=== PATIENT | female | born 2000 | race Caucasian/White ===

== ENCOUNTER 2023-02-25 18:38 | Outpatient (REF) | payer MEDICAID, SELFPAY ==
[2023-02-26 06:18] LABS: CT PCR NOT DETECTED (Not Detect.); NG PCR NOT DETECTED (Not Detect.)
[2023-02-26 12:07] LABS: BV Int Neg Control Negative (Negative); BV Int Pos Control Positive (Positive)
== END 2023-02-25 18:39 | disposition home or self-care (01) ==
LOC: HO.HHCLNP 18:38
PROVIDERS: Visit Provider Registered Nurse
DX: B37.9 Candidiasis, unspecified (principal)
CPT/HCPCS: 0353U; 87480; 87510; 87660

== ENCOUNTER 2023-11-10 19:59 | Outpatient (REF) | payer MEDICAID, SELFPAY | END 2023-11-10 20:00 | disposition home or self-care (01) | LOC: HO.LNP 19:59 | PROVIDERS: Visit Provider Advanced Practice Midwife | DX: Z13.89 Encounter for screening for other disorder (principal) | CPT/HCPCS: 88142 ==

== ENCOUNTER 2024-01-11 12:23 | Outpatient (REF) | payer MEDICAID, SELFPAY ==
[2024-01-11 14:59] LABS: HCG Quantitative 337 mIU/mL
== END 2024-01-11 12:24 | disposition home or self-care (01) ==
LOC: HO.HHCL 12:23
PROVIDERS: Visit Provider Advanced Practice Midwife
DX: N93.9 Abnormal uterine and vaginal bleeding, unspecified (principal)
CPT/HCPCS: 36415; 84702

== ENCOUNTER 2024-08-03 12:21 | Outpatient (REF) | payer MEDICAID, SELFPAY ==
[2024-08-03 14:20] LABS: TSH reflex Free T4 1.47 uIU/mL (0.32-4.0)
--- OUTSIDE RECORDS SUMMARY | 2024-08-03 14:38 | XMS_ITS | Encounter Summary ---
Author Organization [facility] Address [address] [place] [address] Phone Care Team Providers Care Scale Expert Name Role Phone Unavailable Primary Care Provider Unavailabl e Reason for Visit * Reason Comments Med Refill Encounter Details Date Type Department Care Team (Late st Contact Info) Description 01/21/2018 Refill [facility] [address] [place] [address] Pattie Lundberg MD Social History Tobacco Use Types Packs/Day Years Used Date Smoking Tobacco: Never Smokeless Tobacco: Never Comments:Never smoker Alcohol Use Standard Drinks/Week Comments No 0 (1 standard drink = 0.6 oz pur e alcohol) Comments No Sex and Gender Information Value Date Recorded Sex Assigned at Not on file Legal Sex Female 5:16 PM EDT Gender Identity Not on file Sexual Orientation Not on file documented as of this encounter Plan of Treatment Not on file documented as of this encounter Visit Diagnoses Not on filedocumented in this encounter
--- OUTSIDE RECORDS SUMMARY | 2024-08-03 14:38 | XMS_ITS | Clinical Summary ---
Author Organization [facility] Address [address] [place] [address] Phone Care Team Providers Care Visitor Service Assistant Name Role Phone Unavailable Primary Care Provider Unavailabl e Allergies No known active allergies Medications LORATADINE 10 MG tabletIndication s:Chronic non-seasonal allergic rhinitis, unspecified trigger TAKE 1 TABLET BY ORAL ROUTE EVERY DAY 30 tablet 3 7 Active dicyclomine 10 MG capsule Take 10 mg by mouth 2 (two) times a day. 6 8 Active ALAWAY 0.025 % ophthalmic solution INSTILL 1 DROP BY OPHTHALMIC ROUTE 2 TIMES EVERY DAY INTO AFFECTED EYE(S) 1 8 Active melatonin tablet Take 3 mg by mouth nightly. 3 8 Active mometasone (ELOCON) 0.1 % cream ELOCON; apply by TOPICAL route every day a thin film to the affected skin areas; 0.1 %; 01/08/2017; Active 7 Active TRI-PREVIFEM 0.18/0.215/0.25 MG-35 MCG per tablet Take 1 tablet by mouth once daily. 11 8 Active Active Problems Problem Noted Date Diagnosed Date Flexural eczema 01/16/2009 Overview (12/01/2017): triamcinalone 0.1 % cream prn Immunizations Name Administration Dates Next Due DTaP 5 01/19/2004, 1,06/23/2000,03/11,01/03/2000 HPV Vaccine 9 Valent 06/25/2016,11/06/2015 HPV, Quadrivalent 02/27/2012 Hep A, ped/adol 10/10/2014,12/06/2010 Hep B, ped/adol 05/13/2000,03/11/2000,01/03/2000 Hib (PRP-T) 03/11/2001, 0,03/11/2000,01/02 IPV 01/19/2004, 0,03/11/2000,01/02 Influenza Split 02/27/2012 Influenza, injectable, MDCK, preservative free, quadrivalent 06/25/2016 Influenza, injectable, quadr ivalent, preservative free 05/19/2013 Influenza, injectable, trivalent 06/09/2008 MMR 01/19/2004,11/04/2000 Meningococcal Conj (Menactra) MCV4P 11/06/2016,0 02/27/2012 Pneumococcal Conjugate 06/30/2001 Tdap 02/27/2012 Varicella 12/06/2009,11/04/2000 Family History Relation Name Status Comments Brother Alive Brother: Alive and well Father Alive Father: Alive a nd well Mother Alive Mother: Alive a nd well Other 1 Alive Family h/o: Ali ve and well Other 2 No family histo ry of Seizure disorder, No family history of *Thrombophilia, No family history of *Heart Disease, Family history of Diabetes mellitus, No family history of Obesity, No family history of Cancer, No family history of ADD/ADHD, No family history of Strabismus, No family history of *Sudden /NE under 55, No family history of *CVA/Stroke, No family history of Migraines, No family history of Developmental dislocation of hip, No family history of Deafness, Family history of Asthma, No family history of Hyperlipidemia Social History Tobacco Use Types Packs/Day Years [...] on file Sexual Orientation Not on file Last Filed Vital Signs Vital Sign Reading Time Taken Comments Blood Pressure 118/71 12/01/2017 2:10 PM EDT Pulse 77 12/01/2017 2:10 PM EDT Temperature 36.3 ??C (97.3 ??F) 12/10/2016 12:00 AM E DT Respiratory Rate - - Oxygen Saturation - - Inhaled Oxygen Concentration - - Weight 46.5 kg (102 lb 9.6 oz) 12/01/2017 2:10 P M EDT Height 152.4 cm (5') 12/01/2017 2:10 PM EDT Body Mass Index 20.04 12/01/2017 2:10 PM EDT Plan of Treatment Health Maintenance Due Date Last Done Comments Influenza Vaccines (#1) 2024 04/17/20 20, 03/26/2018, 06/25/2016, Additional history exists COVID-19 Vaccine ( season) 2024 DTaP,Tdap,and Td Vaccines (8 - Td or Tdap) 04/20/2029 04/20/2019, 02/27/2012, 01/19/2004, Additional history exists Hepatitis B Vaccines Completed 05/13/2000, 03/11/2000, 01/03/2000 HIB Vaccines Completed 03/11/2001, 02/2000, 03/11/2000, Additional history exists Pneumococcal Vaccine Aged Out 06/30/2001 No long er eligible based on patient's age to complete this topic IPV Vaccines Completed 01/19/2004, 02/2000, 03/11/2000, Additional history exists MMR Vaccines Completed 01/19/2004, 11/04/2000 Varicella Vaccines Completed 12/06/2009, 11/04/2000 Hepatitis A Vaccines Completed 10/10/2014, 12/07/19 11 HPV Vaccines Completed 06/25/2016, 09/2015, 02/27/2012 Meningococcal Vaccine Completed 11/06/2016, 012 Men B Vaccine Aged Out No longer elig ible based on patient's age to complete this topic Procedures * Due to [place] QWiPS law, this organization might not be sharing sensitive test results. Procedure Name Priority Date/Time Associated Diagnosis Comments CHLAMYDIA AND GONORRHEA, AMPLIFIED Routine 12/01/2017 2:30 PM EDT Encounter for screening examination for sexually transmitted disease from Last 3 Months or Most Recently Relevant to Health Maintenance Results * Due to [place] QWiPS law, this organization might not be sharing sensitive test results. * Chlamydia and Gonorrhoea, Amplified (12/01/2017 2:30 PM EDT) Chlamydia Trachomatis, DNA Probe NEGATIVE (NEG) [facility] Comment: No Chlamydia Trachomatis RNA detected in this patient's sample ? (REFERENCE RANGE/NORMAL VALUE: NOT DETECTED) ? Note: This test uses service member- mediated amplification method to detect rRNA from C. Trachomatis URINE GC AMP PROBE NEGATIVE (NEG) [facility] Comment: No Neisseria Gonorrhoeae RNA detected in this patient's sample ? (REFERENCE RANGE/NORMAL VALUE: NOT DETECTED) ? NOTE: This test uses service member-mediated amplification method to detect rRNA from N.Gonorrhoeae. A negative result does not preclude infection. In the case of a negative urine result, testing of an endocervical(female) or urethral (male) specimen is recommended if there is high clinical suspicion of infection. Due to very high sensitivity of Nucleic Acid Amplification Test, false positive results may occur. Therefore, specimen handling is extremely important. In patients in whom the disease is unlikely, additional sample for testing should be considered after an initial positive result. The performance characteristics of this test have not been evaluated in children. The Aptima Combo2 assay is not intended for the evaluation of suspected sexual abuse or for other medico-legal indications. The ordering provider should assess if the patient had consensual sex without risk of sexual abuse. Consult the [facility] if needed. Contact phone number . Therapeutic failure or success cannot be determined with the Aptima Combo2 assay since nucleic acid may persist following appropriate antimicrobial therapy. The Centers for Disease Control and Prevention (CDC) recommends confirmatory retesting using culture or a different nucleic acid amplification test when positive results occur, if indicated. Testing performed or reported by [facility], a Service of [facility], Paulie FunezyoCRISTIANO shaw [id number] CLIA ??[id number] German Montgomery MD, PhD, Director Of Reservations Urine (Urine) 12/01/2017 2:3 0 PM EDT 12/02/2017 12:10 AM EDT us Pattie Lundberg MD LAB MICROBIOLOGY - GENERAL ORDER JOSE Final Result [facility] from Last 3 Months or Most Recently Relevant to Health Maintenance Insurance NON PCC
--- OUTSIDE RECORDS SUMMARY | 2024-08-03 14:38 | XMS_ITS | Encounter Summary ---
Author Organization [facility] Address [address] [place] [address] Phone Care Team Providers Care Physical Therapist Clinic Director Name Role Phone Unavailable Primary Care Provider Unavailabl e Encounter Details Date Type Department Care Team (Late st Contact Info) Description 02/19/2017 Conversion Encounter [facility] - [address] [address] Social History Tobacco Use Types Packs/Day Years Used Date Smoking Tobacco: Never Comments:Never smoker Comments Unknown Sex and Gender Information Value Date Recorded Sex Assigned at Not on file Legal Sex Female 5:16 PM EDT Gender Identity Not on file Sexual Orientation Not on file documented as of this encounter Plan of Treatment Not on file documented as of this encounter Visit Diagnoses Not on filedocumented in this encounter
--- OUTSIDE RECORDS SUMMARY | 2024-08-03 14:38 | XMS_ITS | Encounter Summary ---
Author Organization [facility] Address [address] [place] [address] Phone Care Team Providers Care Respiratory Services Manager Name Role Phone Unavailable Primary Care Provider Unavailabl e Encounter Details Date Type Department Care Team (Late st Contact Info) Description 09/30/2016 Documentation [facility] [place] [address] [place], [place] [id number] Family Medicine, Physician [address] [place], [place] [address] Social History Tobacco Use Types Packs/Day Years Used Date Smoking Tobacco: Never Assessed Comments Unknown Sex and Gender Information Value Date Recorded Sex Assigned at Not on file Legal Sex Female 5:16 PM EDT Gender Identity Not on file Sexual Orientation Not on file documented as of this encounter Plan of Treatment Not on file documented as of this encounter Visit Diagnoses Not on filedocumented in this encounter
--- OUTSIDE RECORDS SUMMARY | 2024-08-03 14:38 | XMS_ITS | Clinical Summary ---
Author Organization [facility] Address [address] [place] [address] Care Team Providers Care Sales Order Coordinator Name Role Phone Unavailable Primary Care Provider Unavailabl e Surgical History Surgery Date Site/Laterality Comments WISDOM TOOTH EXTRACTION PROCEDURE: HISTORICAL WISDOM TEETH EXTRACTION Medical History Medical History Date Comments Patient denies medical problems DX:Patient denies medical problems Anxiety and depression DX:Anxiet y and depression; COMMENT: from transfer records Social History Tobacco Use Types Packs/Day Years Used Date Smoking Tobacco: Never Smokeless Tobacco: Never Alcohol Use Standard Drinks/Week Comments No 0 (1 standard drink = 0.6 oz pur e alcohol) Sex and Gender Information Value Date Recorded Sex Assigned at Not on file Gender Identity Not on file Sexual Orientation Not on file Obstetrics History Last Filed Vital Signs Vital Sign Reading Time Taken Comments Blood Pressure 94/64 10/13/2023 1:36 PM EDT Pulse 77 10/13/2023 1:36 PM EDT Temperature - - Respiratory Rate - - Oxygen Saturation - - Inhaled Oxygen Concentration - - Weight 66.5 kg (146 lb 8 oz) 10/13/2023 1:36 PM EDT Height 149.9 cm (4' 11 ) 09/04/2023 2:27 PM EST Body Mass Index 29.59 09/04/2023 2:27 PM EST Plan of Treatment Health Maintenance Due Date Last Done Comments Gonorrhea/Chlamydia Screening 1999 HPV Vaccines (1 - 3-dose series) 10/15/2014 DTaP,Tdap,and Td Vaccines (1 - Tdap) 10/15/2018 Hepatitis B Vaccines (1 of 3 - 19+ 3-dose series) 10/15/2018 Cervical Cancer Screening: P ap Smear 10/15/2020 Cholesterol Screening (Lipid Panel) 06/07/2022 Depression Screening 06/07/2022 HIV Screening 06/07/2022 Hepatitis C Screening 06/07/2022 Social Influencers of Health Screening 06/07/2022 COVID-19 Vaccine ( - 2023-2 5 season) 2024 Influenza Vaccine (#1) 2024 HIB Vaccines Aged Out No longer eligi ble based on patient's age to complete this topic Hepatitis A Vaccines Aged Out No long er eligible based on patient's age to complete this topic IPV Vaccines Aged Out No longer eligi ble based on patient's age to complete this topic MMR Vaccines Aged Out No longer eligi ble based on patient's age to complete this topic Meningococcal ACWY Vaccine Aged Out N o longer eligible based on patient's age to complete this topic Pneumococcal Vaccine: Pediat rics (0 to 5 Years) and At-Risk Patients (6 to 64 Years) Aged Out No longer eligible b ased on patient's age to complete this topic RSV Immunization Patients Un manjit 20 months Aged Out No longer eligible b ased on patient's age to complete this topic Varicella Vaccines Aged Out No longer eligible based on patient's age to complete this topic
--- OUTSIDE RECORDS SUMMARY | 2024-08-03 14:38 | XMS_ITS | Encounter Summary ---
Author Organization [facility] Address [address] [place] [address] Phone Care Team Providers Care Control Director Name Role Phone Unavailable Primary Care Provider Unavailabl e Encounter Details Date Type Department Care Team (Late st Contact Info) Description 09/03/2016 Documentation [facility] [place] Medicine [address] [place], [place] [phone] Family Medicine, Physician [address], [place] [phone] Social History Tobacco Use Types Packs/Day Years [...]
--- OUTSIDE RECORDS SUMMARY | 2024-08-03 14:38 | XMS_ITS | Encounter Summary ---
Author Organization [facility] Address [address] [place] [address] Phone Care Team Providers Care Telecommunications Project Manager Name Role Phone Unavailable Primary Care Provider Unavailabl e Encounter Details Date Type Department Care Team (Late st Contact Info) Description 08/27/2016 Documentation [facility] [place] [address] [place], [place] [phone] Family Medicine, Physician [address] [place] [place], [place] [address] Social History Tobacco Use Types Packs/Day Years [...]
--- OUTSIDE RECORDS SUMMARY | 2024-08-03 14:38 | XMS_ITS | Encounter Summary ---
Author Organization [facility] Address [address] [place] [address] Phone Care Team Providers Care Boiler Out Name Role Phone Unavailable Primary Care Provider Unavailabl e Encounter Details Date Type Department Care Team (Late st Contact Info) Description 07/25/2015 Documentation [facility] [place] [address] [place], [place] [phone] Family Medicine, Physician [address], [place] [address] Social History Tobacco Use Types Packs/Day Years [...]
--- OUTSIDE RECORDS SUMMARY | 2024-08-03 14:38 | XMS_ITS | Encounter Summary ---
Author Organization [facility] Address [address] [place] [address] Phone Care Team Providers Care Tube Backer Name Role Phone Unavailable Primary Care Provider Unavailabl e Encounter Details Date Type Department Care Team (Late st Contact Info) Description 08/24/2013 Documentation [facility] [address] [place], [place] [phone] Family Medicine, Physician [address] [place], [place] [address] Social History Tobacco Use Types Packs/Day Years [...]
--- OUTSIDE RECORDS SUMMARY | 2024-08-03 14:38 | XMS_ITS | Encounter Summary ---
Author Organization [facility] Address [address] [place] [address] Phone Care Team Providers Care Property Preservation Specialist Name Role Phone Unavailable Primary Care Provider Unavailabl e Encounter Details Date Type Department Care Team (Late st Contact Info) Description 08/06/2011 Documentation [facility] [place] [address] [place], [place] [phone] Family Medicine, Physician [address], [place] [address] Social History Tobacco Use Types Packs/Day Years [...]
[2024-08-04 07:44] LABS: Prolactin 4.7 ng/mL
[2024-08-04 11:53] LABS: Bacterial Vaginosis PCR NEGATIVE (Negative); Candida Group PCR NOT DETECTED (Not Detect); Candida glab krusei PCR NOT DETECTED (Not Detect); Trichomonas vaginalis PCR NOT DETECTED (Not Detect)
[2024-08-04 17:19] LABS: CT PCR NOT DETECTED (Not Detect.); NG PCR NOT DETECTED (Not Detect.)
== END 2024-08-03 12:22 | disposition home or self-care (01) ==
LOC: HO.HHCL 12:21
PROVIDERS: Visit Provider Advanced Practice Midwife
DX: Z11.3 Encounter for screening for infections with a predominantly sexual mode of transmission (principal); N91.2 Amenorrhea, unspecified
CPT/HCPCS: 36415; 81515; 84146; 84443; 87491; 87591

== ENCOUNTER 2025-03-21 11:36 | Outpatient (REF) | payer MEDICAID, SELFPAY ==
[2025-03-21 14:09] LABS: MANUAL DIFF FLAG NO
[2025-03-21 14:33] LABS: Hematocrit 39.1 % (37.0-47.0); Hemoglobin 13.4 g/dl (12.0-16.0); Imm Gran Abs Auto 0.02 X10*3/uL (0.00-0.03); Imm Gran Pct Auto 0.3 % (0.0-0.4); Lymphocytes Absolute Auto 2.8 X10*3/uL (1.2-4.9); Mean Corpuscular HGB Conc 34.3 g/dl (31.0-35.0); Mean Corpuscular Hemoglobin 30.0 pg (27.0-33.0); Mean Corpuscular Volume 87.5 fL (80.0-98.0); NRBC Abs Auto 0.000 X10*3/uL (0.0-0.012); NRBC Pct Auto 0.0 /100WBC (0.0-0.2); Platelet Count 346 X10*3/uL (160-400); Red Blood Count 4.47 X10*6/uL (4.20-5.50); White Blood Count 6.7 X10*3/uL (4.8-10.8)
[2025-03-21 14:49] LABS: Alanine Aminotransferase 66 U/L (0-31); Albumin Level 4.4 g/dL (3.5-5.0); Alkaline Phosphatase 72 U/L (39-117); Anion Gap 10 (12-20); Aspartate Amino Transferase 51 U/L (5-31); Blood Urea Nitrogen 8 mg/dL (9-16); Calcium 8.9 mg/dL (8.4-10.2); Carbon Dioxide 26 mmol/L (22-29); Chloride 110 mmol/L (96-108); Cholesterol 141 mg/dL (<200); Estimated Glomerular Filt Rate > 60; HDL Cholesterol 37 mg/dL (>40); Potassium 3.6 mmol/L (3.3-5.1); Sodium 142 mmol/L (135-145); Total Protein 7.5 g/dL (6.5-8.0); Triglycerides 122 mg/dL (<150)
--- OUTSIDE RECORDS SUMMARY | 2025-03-21 15:51 | XMS_ITS | Encounter Summary ---
Author Organization [employer] [facility] Address [address] [place] [address] [address] [place] [address] Care Team Providers Care Adobe Cq Developer Name Role Phone Elodia Sosa MD Primary Care Provider [phone] Encounter Details Date Type Department Care Team (Latest Contact Info) Description 03/09/2019 Abstract [facility]VERSION[facility] Dental, Provider, DDS Social History Tobacco Use Types Packs/Day Years Used Date Smoking Tobacco: Never Assessed Comments Unknown Sex and Gender Information Value Date Recorded Sex Assigned at Female 05/05/2022 10:24 AM EDT Legal Sex Female 10:24 AM EDT Gender Identity Female 05/05/2022 10:24 AM EDT Sexual Orientation Straight 05/05/2022 10 :24 AM EDT documented as of this encounter Plan of Treatment Not on file documented as of this encounter Visit Diagnoses Not on filedocumented in this encounter Care Teams Adobe Cq Developer Relationship Specialty Start Date End Date Elodia Sosa MD [address] [place] [address] PCP - General Internal Medicine 02/10/25 Awilda Paul Laborer [employer] [place] 09/17/23 documented as of this encounter
--- OUTSIDE RECORDS SUMMARY | 2025-03-21 15:51 | XMS_ITS | Clinical Summary ---
Author Organization [employer] Address [address] [facility] [address] [place] [address] Care Team Providers Care Certified Procedural Coder Name Role Phone Elodia Sosa MD Primary Care Provider [phone] Allergies Active Allergy Reactions Criticality Noted Date Comments Latex 03/21/2022 Other reaction(s): Acne Medications diphenhydrAMIN E (BENADryl) 25 MG tabletIndicati ons:Urticaria 1 to 2 tablets at bedtime. 30 tablet 2 11/08/19 25 Active famotidine (Pepcid) 20 MG tabletIndicati ons:Other chest pain Take 1 tablet (20 mg) by mouth 2 times daily. 60 tablet 11 11/08/19 25 026 Active Acetaminophen Extra Strength 500 MG tablet TAKE 1 TABLET (500 MG) BY MOUTH EVERY 6 (SIX) HOURS IF NEEDED FOR MILD PAIN. 90 tablet 01/24/20 25 Active fexofenadine (Nancy) 180 MG tabletIndicati ons:Urticaria TAKE 1 TABLET BY MOUTH IF NEEDED EACH DAY FOR ALLERGIES 90 tablet 01/31/20 25 Active acetaminophen (Tylenol) 500 MG tablet Take 2 tablets (1,000 mg) by mouth every 6 (six) hours if needed for moderate pain or fever for up to 25 doses. 40 tablet 07/13/19 25 025 Discontinued Drospirenone (Slynd) 4 MG tablet Take 1 tablet by mouth Once per day. Start after taking Provera and once period starts. Call office if no period after taking Provera or no period on pill 28 tablet 11 08/03/19 25 025 Discontinued(Th erapy completed) lidocaine-pril ocaine (Emla) 2.5-2.5 % creamIndicatio ns:Other chest pain To use 2 times a day as needed 30 g 1 11/08/19 25 025 Discontinued(Th erapy completed) methocarbamol (Robaxin) 500 MG tablet Take 1 tablet (500 mg) by mouth every 6 (six) hours for 10 days. 40 tablet 01/03/20 25 025 Discontinued(Th erapy completed) Active Problems Problem Noted Date Diagnosed Date Acute gastric ulcer without hemorrhage or perfor ation 03/10/2025 Anemia affecting in third trimester Anxiety 11/07/2024 Constipation 11/07/2024 Depression 11/07/2024 Dysuria in 11/07/2024 Frequent headaches 11/07/2024 Hematuria 11/07/2024 Nausea and vomiting 11/07/2024 11/07/2024 Abdominal pain 10/21/2022 Family planning 09/18/2022 Assessment & Plan (09/18/2022 9:43 AM EDT): Does not desire . Susan given She would like to try birthcontrol patch. She will start after her next period. Check pregnacy test if no menses in 2 weeks. Condoms given. Lower abdominal pain 09/18/2022 Assessment & Plan (09/18/2022 9:42 AM EDT): No acute abdomen. Pregnacy test negative. Possibly due to constipation. Trial of Senna and Glycerin supository given. ER precautions discussed. Chronic superficial gastritis 03/26/2018 Flexural eczema 01/16/2009 Overview (09/18/2022): triamcinalone 0.1 % cream prn Encounters Date Type Department Care Team Description 03/10/2025 2:00 PM EDT Office Visit [facility] [address] [place] [address] Elodia Sosa MD Acute gastric ulcer without hemorrhage or perforation (Primary Dx); Flexural eczema; Chronic superficial gastritis without bleeding; Frequent headaches; Dietary counseling; Exercise counseling; Overweight (BMI 25.0-29.9) 03/10/2025 Travel 03/09/2025 Telephone [facility] [address] [place] [address] Elodia Sosa MD chart prep 03/03/2025 Travel 03/02/2025 Patient Outreach [address] [address] Elodia Sosa MD Pre-visit Planning (Pre visit planning LVM ) 01/29/[address] [facility] [address] [place] [address] Elodia Sosa MD Urticaria 01/22/2025 Refill [facility] [address] [place], [place] [phone] Jen Busby MD 01/02/2025 11:30 AM EDT Office Visit [facility] [address] [place] [address] Jen Busby MD Chronic bilateral thoracic back pain (Primary Dx) 01/02/[address] [address] Jen Busby MD Change PCP 01/02/2025 Travel 12/29/[address] [address] Jen Busby MD Nurse Triage from Last 3 Months Immunizations Immunization Administration Dates Next Due DTaP, 5 pertussis antigens 01/19/2004,,06/23/2000,03/11,01/03/2000 HPV 9-Valent 06/25/2016,11/06/2015 HPV, Quadrivalent 02/27/2012 Hep A, ped/adol, 2 dose 10/10/2014,12/06/2010 Hep B, Adolescent or Pediatric 05/13/2000,1999,01/03/2000 Hib (PRP-T) 03/11/2001, 0,03/11/2000,01/02 IPV 01/19/2004, 0,03/11/2000,01/02 Influenza Injectable Quadriv alant Preservative Free IIV4 MDCK 06/25/2016 Influenza injectable quadriv alent preservative free 03/27/2021,04/17/2020,03/26/2018,05/19 Influenza, IIV3, injectable 06/09/2008 Influenza, Split (incl. rajani fied surface antigen) 02/27/2012 MMR 01/19/2004,11/04/2000 Meningococcal MCV4P ACYW-135 11/06/2016,02/27/20 12 Pfizer Covid-19 Vaccine 12+ 05/02/2021, Pneumococcal Conjugate PCV 7 06/30/2001 Tdap 06/24/2023,04/20/2019,02/27/2012 Varicella 12/06/2009,11/04/2000 Family History Medical History Relation Name Comments Arthritis Mother Keerthi Arthritis Son Zay Dillon Heart disease Son Zay Dillon Relation Name Status Comments Mother Keerthi Son Zay Dillon Social History Tobacco Use Types Packs/Day Years Used Date Smoking Tobacco: Never Passive Smoke Exposure: Never Smokeless Tobacco: Never Tobacco Cessation:Counseling Given: Not Answered Alcohol Use Standard Drinks/Week Comments Never 0 (1 standard drink = 0.6 oz pur e alcohol) Depression Answer Date Recorded Patient Health Questionnaire-9 Score 0 09/20/2024 Patient Health Questionnaire-9 Score 0 09/20/2024 Last PHQ-9: Questionnaire Data Not on file 0 09/20/2024 Housing Stability Answer Date Recorded What is your housing situation today? I have ian vela 09/13/[address] you li ve. Do you have problems with any of the following? None of the above 09/13/2024 Food Insecurity Answer Date Recorded Within the past 12 months, y ou worried that your food would run out before you got money to buy more: Never True 09/13/2024 Within the past 12 months,th e food you bought just didn't last and you didn't have enough money to get more: Never True 05/2025 Transportation Answer Date Recorded In the past 12 months, has l ack of transportation kept you from medical appts, meetings, work or from getting things needed for daily living? No 09/13/2024 Utilities Answer Date Recorded In the past 12 months, has t he electric, gas, oil or water company threatened to shut off services in your home? No 09/13/2024 Depression Answer Date Recorded Patient Health Questionnaire-2 Score 0 09/20/2024 Internet Access Answer Date Recorded Internet Access Q1 Yes 09/13/2024 Internet Access Q2 Not on file 09/13/2024 Comments No Sex and Gender Information Value Date Recorded Sex Assigned at Female 05/05/2022 10:24 AM EDT Legal Sex Female 10:24 AM EDT Gender Identity Female 05/05/2022 10:24 AM EDT Sexual Orientation Straight 05/05/2022 10 :24 AM EDT Last Filed Vital Signs Vital Sign Reading Time Taken Comments Blood Pressure 130/76 03/10/2025 2:12 PM EDT Pulse 79 03/10/2025 2:12 PM EDT Temperature 36.3 C (97.3 F) 03/10/2025 2:12 PM EDT Respiratory Rate 20 03/10/2025 2:12 PM EDT Oxygen Saturation 98% 03/10/2025 2:12 PM EDT Inhaled Oxygen Concentration - - Weight 65.8 kg (145 lb) 03/10/2025 2:12 PM EDT Height 152.4 cm (5') 03/10/2025 2:12 PM EDT Body Mass Index 28.32 03/10/2025 2:12 PM EDT Plan of Treatment Health Maintenance Due Date Last Done Comments COVID-19 Vaccine ( season) 2025 09/29/2021, 05/02/2021, 04/11/2021 Influenza Vaccine (#1) 2025 , 03/27/2021, 04/17/2020, Additional history exists Disability Screening 07/13/2025 07/13/2024 Family Planning (PISQ) 08/03/2025 08/03/2024 SDOH Screening 09/13/2025 09/13/2024 Alcohol/Substance Use Screening 09/20/2025 09/20/2024 Depression Screening 09/20/2025 09/20/2024, 09/21/19 25 Tobacco Screening 03/10/2026 03/10/2025 Pap Smear 11/09/2026 11/10/2023, 11/06/2020 DTaP/Tdap/Td Vaccines (9 - Td or Tdap) 06/24/2033 06/24/2023, 04/20/2019, 02/27/2012, Additional history exists Zoster Vaccines (1 of 2) 10/15/2049 RSV Patients and Patients Aged 60 years or older (1 - 1-dose 75+ series) 10/15/2074 Hepatitis B Vaccines Completed 05/13/2000, 03/11/2000, 01/03/2000 HIB Vaccines Completed 03/11/2001, 02/2000, 03/11/2000, Additional history exists Pneumococcal Vaccine: Pediatrics (0 to 5 Years) and At-Risk Patients (6 to 49) Years Aged Out 06/30/2001 No longer eligible based on patient's age to complete this topic IPV Vaccines Completed 01/19/2004, 02/2000, 03/11/2000, Additional history exists Hepatitis A Vaccines Completed 10/10/2014, 12/07/19 11 HPV Vaccines Completed 06/25/2016, 09/2015, 02/27/2012 Meningococcal Vaccine Completed 11/06/2016, 012 HIV Screening Completed 05/20/2022, 01/03, 11/27/2021, Additional history exists Hepatitis C Screening Completed 05/20/2022 , 01/20/2022, 11/27/2021, Additional history exists Meningococcal B Vaccine Aged Out No l onger eligible based on patient's age to complete this topic RSV under 20 months Aged Out No longe r eligible based on patient's age to complete this topic Rotavirus Vaccines Aged Out No longer eligible based on patient's age to complete this topic Procedures Procedure Name Priority Date/Time Associated Diagnosis Comments TSH W/REFLEX TO FT4 Routine 03/21/2025 1 1:43 AM EDT Frequent headaches LIPID PANEL, STANDARD Routine 03/21/2025 11:43 AM EDT Frequent headaches COMPREHENSIVE METABOLIC PANEL Routine 03/21/2025 11:43 AM EDT Frequent headaches CBC WITH AUTO DIFFERENTIAL Routine 03/21/2025 11:43 AM EDT Frequent headaches PAP SMEAR Routine 11/10/2023 2:02 PM EDT Cervical cancer screening ZZZ HISTORICAL HEPATITIS C AB W/REFL TO HCV RNA, QN, PCR Routine 05/20/2022 10:52 AM EST HIV 1/2 ANTIGEN/ANTIBODY, FOURTH GENERATION W/RFL Routine 05/20/2022 10:52 AM EST from Last 3 Months or Most Recently Relevant to Health Maintenance Results * TSH with Reflex to Free T4 (03/21/2025 11:43 AM EDT) Pathologist [facility] TSH reflex Free T4 0.91 0.32 - 4.0 uIU/mL [facility] Blood Venous blood specimen / Unknown 03/21/2025 11:43 AM EDT 03/21/2025 2:06 PM EDT us Elodia Sosa MD LAB BLOOD ORDERABLES Final Result [facility] [address] [place] [phone] * (ABNORMAL) CBC auto differential (03/21/2025 11:43 AM EDT) Pathologist [facility] White Blood Count 6.7 4.8 - 10.8 X10*3/uL [facility] Red Blood Count 4.47 4.20 - 5.50 X10*6/uL [facility] Hemoglobin 13.4 12.0 - 16.0 g/dl [facility] Hematocrit 39.1 37.0 - 47.0 % [facility] Mean Corpuscular Volume 87.5 80.0 - 98.0 fL [facility] Mean Corpuscular Hemoglobin 30.0 27.0 - 33.0 pg [facility] Mean Corpuscular HGB Conc 34.3 31.0 - 35.0 g/dl [facility] Red Cell Distribution Width 12.8 11.0 - 16.0 % [facility] Platelet Count 346 160 - 400 X10*3/uL [facility] Mean Platelet Volume 10.0 9.4 - 12.3 fL [facility] Neutrophils Percent Auto 50.2 45 - 73 % [facility] Imm Gran Pct Auto 0.3 0.0 - 0.4 % [facility] Lymphocytes Percent Auto 41.4(H) 20 - 40 % [facility] Monocytes Percent Auto 5.6 2 - 11 % [facility] Eosinophils Percent Auto 1.7 0 - 4 % [facility] Basophils Percent Auto 0.8 0 - 2 % [facility] NRBC Pct Auto 0.0 0.0 - 0.2 /100WBC [facility] Neutrophils Absolute Auto 3.4 2.0 - 8.3 x10*3/uL [facility] Imm Gran Abs Auto 0.02 0.00 - 0.03 X10*3/uL [facility] Lymphocytes Absolute Auto 2.8 1.2 - 4.9 X10*3/uL [facility] Monocytes Absolute Auto 0.4 0.1 - 1.2 X10*3/uL [facility] Eosinophils Absolute Auto 0.1 0.0 - 0.4 X10*3/uL [facility] Basophils Absolute Auto 0.1 0.0 - 0.2 X10*3/uL [facility] NRBC Abs Auto 0.000 0.0 - 0.012 X10*3/uL [facility] Blood Venous blood specimen / Unknown 03/21/2025 11:43 AM EDT 03/21/2025 2:06 PM EDT us Elodia Sosa MD LAB BLOOD ORDERABLES Final Result [facility] [address] [place] [phone] * (ABNORMAL) Lipid Panel, Standard (03/21/2025 11:43 AM EDT) Triglycerides 122 <150 mg/dL [facility] Comment:Desirable Triglyceri de: less than 150 mg/dLBorderline High Triglyceride 150-199 mg/dLHigh Triglyceride: 200-499 mg/dLVery High Triglyceride: greater than or equal to 5OO mg/dL Cholesterol 141 <200 mg/dL [facility] Comment:Desirable Cholestero l: less than 200 mg/dLBorderline High Cholesterol: 200-239 mg/dLHigh Cholesterol: greater than 239 mg/dL LDL Cholesterol Calculated 80 <100 mg/dL [facility] Comment:Desirable LDL: less than 100 mg/dLNear Optimal/Above Optimal LDL: 110- 129 mg/dLBorderline High LDL: 130-159 mg/dLHigh LDL: 160-189 mg/dLVery High LDL: greater than or equal to 190 mg/dL HDL Cholesterol 37(L) >40 mg/dL [facility] Comment:Desirable HDL: great er than 40 mg/dL Note: This HDL assay may give artificially low results in patients with liver disease. Blood Venous blood specimen / Unknown 03/21/2025 11:43 AM EDT 03/21/2025 2:06 PM EDT us Elodia Sosa MD LAB BLOOD ORDERABLES Final Result [facility] [address] [place] [phone] * (ABNORMAL) Comprehensive Metabolic Panel (03/21/2025 11:43 AM EDT) Sodium 142 135 - 145 mmol/L [facility] Potassium 3.6 3.3 - 5.1 mmol/L [facility] Chloride 110(H) 96 - 108 mmol/L [facility] Carbon Dioxide 26 22 - 29 mmol/L [facility] Anion Gap 10(L) 12 - 20 [facility] Urea Nitrogen (BUN) 8(L) 9 - 16 mg/dL [facility] Creatinine, Serum 0.59 0.5 - 1.4 mg/dL [facility] Estimated Glomerular Filt Rate >60 [facility] Comment:Chronic Kidney Disea se: Estimated GFR < 60 mL/min/[id number] Kidney Disease: Estimated GFR < 15 mL/min/1.73m2 Glucose 87 60 - 115 mg/dL [facility] Calcium 8.9 8.4 - 10.2 mg/dL [facility] Bilirubin, Total 0.7 0.0 - 1.0 mg/dL [facility] Aspartate Amino Transferase 51(H) 5 - 31 U/L [facility] Alanine Aminotransferase 66(H) 0 - 31 U/L [facility] Total Protein 7.5 6.5 - 8.0 g/dL [facility] Albumin Level 4.4 3.5 - 5.0 g/dL [facility] Alkaline Phosphatase 72 39 - 117 U/L [facility] Blood Venous blood specimen / Unknown 03/21/2025 11:43 AM EDT 03/21/2025 2:06 PM EDT us Elodia Sosa MD LAB BLOOD ORDERABLES Final Result [facility] [address] [place] [phone] * Pap Smear (11/10/2023 2:02 PM EDT) Swab Cervix uteri structure / Unknown 11/10/2023 2:02 PM EDT 11/11/2023 8:20 AM EDT Narrative [facility] - 11/28/2023 5:45 PM EDT ----- ------- Name: Santana PashaCelia Age/Sex: 23/F : 2000 Unit#: [id number] Attend Dr: ZAIRE CASTRO CNM Re11/10/23 Status: DEP REF Location: [facility]NP Disch: ----- ------- SPEC : [id number] RECD: 11/11/23 STATUS: BRENDA TILLMAN NUM: [id number] FERNIE: 11/10/23-[address] [facility] [address]: ZAIRE CASTRO CNM ENTERED: 11/11/23-1055 SP TYPE: Pap Smr OTHR DR: ORDERED: Pap Smear Interpretation Satisfactory for evaluation. Negative for intraepithelial lesion or malignancy. Mild inflammation. Clinical Information LMP: 11/10/2023 Previous PAP test: 2020, WNL Material Received ThinPrep-Cervical ----- ------- Signed (signature on file) Geovanna Aguilar 11/28/23 8025 ----- ------- END OF REPORT Zaire Castro CNM LAB CYTOLOGY ORDERABLES F inal Result [facility] [address] [place] [phone] * HEPATITIS C AB W/REFL TO HCV RNA, QN, PCR (05/20/2022 10:52 AM EST) HEPATITIS C ANTIBODY NON-REACTI VE NON-REACT CHIDI [facility] INDEX 0.11 <1.00 [facility] Comment: HCV antibody was non-reactive. There is no laboratory evidence of HCV infection. In most cases, no further action is required. However, if recent HCV exposure is suspected, a test for HCV RNA (test code 22193) is suggested. For additional information please refer to http://[employer].Prot-On/faq/MGA73r6 (This link is being provided for informational/ educational purposes only.) 05/20/2022 10:5 2 AM EST Jen Busby MD HISTORICAL/NON ORDERABLE LABS Fi nal Result [facility]VERT[facility]GACY LABS * HIV 1/2 ANTIGEN/ANTIBODY,FOURTH GENERATION W/RFL (05/20/2022 10:52 AM EST) HIV-1/2 ANTIGEN AND ANTIBODIES, 4TH GENERATION W/ REFLEX NON-REACT CHIDI NON-REACT CHIDI [facility] Comment: HIV-1 antigen and HIV-1/HIV-2 antibodies were not detected. There is no laboratory evidence of HIV infection. PLEASE NOTE: This information has been disclosed to you from records whose confidentiality may be protected by state law. If your state requires such protection, then the state law prohibits you from making any further disclosure of the information without the specific written consent of the person to whom it pertains, or as otherwise permitted by law. A general authorization for the release of medical or other information is NOT sufficient for this purpose. For additional information please refer to http://[employer] Infuse.Prot-On/faq/IDY601 (This link is being provided for informational/ educational purposes only.) The performance of this assay has not been clinically validated in patients less than 2 years old. 05/20/2022 10:5 2 AM EST us Jen Busby MD LAB BLOOD ORDERABLES Final Resul t [facility]VERT[facility]GACY LABS from Last 3 Months or Most Recently Relevant to Health Maintenance Insurance [address] [place] [address] C3 Care Teams Certified Procedural Coder Relationship Specialty Start Date End Date Elodia Sosa MD [address] [place] [phone] PCP - General Internal Medicine 02/10/25 Awilda Paul Audiometrist 09/17/23
--- OUTSIDE RECORDS SUMMARY | 2025-03-21 15:51 | XMS_ITS | Clinical Summary ---
Author Organization [facility] ity Address [address] [place] [address] Care Team Providers Care Engineering Documentation Specialist Name Role Phone Unavailable Primary Care [...] = 0.6 oz pur e alcohol) Comments Unknown Sex and Gender Information Value Date Recorded Sex Assigned at Not on file Legal Sex Female 5:41 PM EST Gender Identity Not on file Sexual Orientation [...] Health Maintenance Due Date Last Done Comments HPV Vaccines (1 - 3-dose series) 10/15/2014 DTaP,Tdap,and Td Vaccines (1 - Tdap) 10/15/2018 Hepatitis B Vaccines (1 of 3 - 19+ 3-dose series) 10/15/2018 Cervical Cancer Screening: P ap Smear 10/15/2020 Cholesterol Screening (Lipid Panel) 06/07/2022 HIV Screening 06/07/2022 Hepatitis C Screening 06/07/2022 Social Influencers of Health Screening 06/07/2022 Depression Screening 07/06/2024 COVID-19 Vaccine (2023-2 5 season) 2025 Influenza Vaccine (#1) 2025 HIB Vaccines Aged Out No longer eligi [...] patient's age to complete this topic Meningococcal B Vaccine Aged Out No l onger eligible based on patient's age to complete this topic Pneumococcal Vaccine: Pediat rics (0 to 5 Years) and At-Risk Patients (6 to 49 Years) Aged Out No longer eligible b ased on patient's age to complete this topic RSV Immunization Patients Un manjit 20 months Aged Out No longer eligible b ased on patient's age to complete this topic Varicella Vaccines Aged Out No longer eligible based on patient's age to complete this topic
--- OUTSIDE RECORDS SUMMARY | 2025-03-21 15:51 | XMS_ITS | Encounter Summary ---
Author Organization [employer] [facility] Address [address] [place] [address] [address] [place] [address] Care Team Providers Care Women'S Studies Lecturer Name Role Phone Elodia Sosa MD Primary Care Provider Encounter Details Date Type Department Care Team (Latest Contact Info) Description 11/09/[address] [facility] CONVERSIONS Dental, Provider, DDS Social History Tobacco [...] on filedocumented in this encounter Care Teams Women'S Studies Lecturer Relationship Specialty Start Date End Date Elodia Sosa MD [address] [place] [address] PCP - General Internal Medicine 02/10/25 Awilda Paul Electrical Instrument Maker 09/17/23 documented as of this encounter
--- OUTSIDE RECORDS SUMMARY | 2025-03-21 15:51 | XMS_ITS | Encounter Summary ---
Author Organization [employer] [facility] Address [address] [facility] [address] [place] [address] Care Team Providers Care Customer Quality Specialist Name Role Phone Elodia Sosa MD Primary Care Provider [phone] Encounter Details Date Type Department Care Team (Late st Contact Info) Description 09/22/2022 Orders Only [facility] MEDICINE [address] [place] [phone] Pauly Noble MD [address] [place] [address] Lower abdominal pain (Primary Dx) Social History Tobacco Use Types Packs/Day Years Used Date Smoking Tobacco: Never Smokeless Tobacco: Never Comments Unknown Sex and Gender Information Value Date Recorded Sex Assigned at Female 05/05/2022 10:24 AM EDT Legal Sex Female 10:24 AM EDT Gender Identity Female 05/05/2022 10:24 AM EDT Sexual Orientation Straight 05/05/2022 10 :24 AM EDT COVID-19 Exposure Response Date Recorded In the last 10 days, have yo u been in contact with someone who was confirmed or suspected to have Coronavirus/COVID-19? No / Unsure 09/18/2022 8:53 AM EDT documented as of this encounter Plan of Treatment Not on file documented as of this encounter Visit Diagnoses Diagnosis Lower abdominal pain- Primary Abdominal pain, other specified site documented in this encounter Care Teams Customer Quality Specialist Relationship Specialty Start Date End Date Elodia Sosa MD [address] [place] [address] PCP - General Internal Medicine 02/10/25 Awilda Paul Labor Economics Professor 09/17/23 documented as of this encounter
== END 2025-03-21 11:37 | disposition home or self-care (01) ==
LOC: HO.CHCLDS 11:36
PROVIDERS: Visit Provider Internal Medicine
DX: R51.9 Headache, unspecified (principal)
CPT/HCPCS: 36415; 80053; 80061; 84443; 85025

== ENCOUNTER 2025-03-27 13:27 | Outpatient (REF) | payer MEDICAID, SELFPAY ==
[2025-03-27 14:36] LABS: INTERNATIONAL NORM RATIO 1.0 (0.9-1.1); Prothrombin Time 11.7 SEC (10.9-12.4)
[2025-03-27 15:04] LABS: Iron 70 mcg/dL (30-160); Percent Iron Saturation 21 % (15-50); Total Iron Binding Capacity 329 mcg/dL (228-428); Unsaturated Iron Binding 259 ug/dL
[2025-03-27 15:21] LABS: Ferritin 63 ng/mL (10-122)
--- OUTSIDE RECORDS SUMMARY | 2025-03-27 15:49 | XMS_ITS | Clinical Summary ---
Author Organization [employer] [facility] Address [address] [place] [address] Care Team Providers Care Message Broker Developer Name Role Phone Elodia Sosa MD Primary Care Provider [phone] Allergies Active Allergy Reactions Criticality Noted Date Comments Latex 03/21/2022 Other reaction(s): Acne Medications diphenhydrAMIN E (BENADryl) 25 MG
--- OUTSIDE RECORDS SUMMARY | 2025-03-27 15:50 | XMS_ITS | Encounter Summary ---
Demographics Address [address] [place] [address] Home Phone Preferred Language Bulgarian; Castilian Marital Status Unknown Faith Affiliation Unknown
[2025-03-28 13:57] LABS: HBS Num1 20.74 mIU/mL (0-7.99); HBc Num1 0.16 S/CO (0.00-0.79); HBsAGNum1 0.38 S/CO (0.00-0.99); Hepatitis A Antibody IgM 0.23 Index (0-0.79); Hepatitis B Surface Antigen Negative (Negative); ~HepC Num1 0.10 S/CO (0.00-0.79); ~Hepatitis A Antibody IgM Nonreactive (Nonreactive); ~Hepatitis B Surface Antibody REACTIVE (Nonreactive); ~Hepatitis C Antibody Nonreactive (Nonreactive)
== END 2025-03-27 13:28 | disposition home or self-care (01) ==
LOC: HO.CHCLDS 13:27
PROVIDERS: Visit Provider Internal Medicine
DX: Z11.59 Encounter for screening for other viral diseases (principal); R74.01 Elevation of levels of liver transaminase levels
CPT/HCPCS: 36415; 82728; 82784; 83540; 85610; 86704; 86706; 86709; 86803; 87340

== ENCOUNTER 2025-06-09 09:35 | Outpatient (REF) | payer MEDICAID, SELFPAY ==
--- NOTE | ~2025-06-09 | US_ITS ---
EXAMINATION: US COMPLETE ABDOMEN WITH LIVER ELASTOGRAPHY CLINICAL INFORMATION: Transaminitis. COMPARISON: No prior available. TECHNIQUE: Real-time imaging of the abdominal viscera. Noninvasive ultrasound liver fibrosis assessment is performed using [employer] Elast[employer] point quantification shear wave elastography (pSWE) with a C5-2 MHz transducer. Multiple elastography samples are obtained. FINDINGS: PANCREAS: The visualized pancreatic head and body are normal in appearance. The remainder of the pancreas is obscured from visualization by the overlying bowel gas. ABDOMINAL AORTA: No aortic aneurysm is seen. INFERIOR VENA CAVA: Visualized portions are normal. LIVER: Liver is normal in size and contour. There is diffusely increased hepatic echogenicity present, with areas of focal fatty sparing present. There is no suspicious focal lesion evident. No intrahepatic biliary dilatation. The right lobe measures 16.3 cm in length. The left lobe measures 13.2 cm in length. Portal flow is towards the liver (hepatopetal). Shear wave liver elastography median stiffness is 1.61 m/s (reference: normal median stiffness is 1.3 m/s or less). IQR/median stiffness to assess sampling precision is 0.11 (reference: good quality data set is IQR/median stiffness of 0.15 or less). This indicates a quality data set. GALLBLADDER: The gallbladder is physiologically distended without evidence of stones, sludge, polyps, wall thickening or pericholecystic fluid. Negative sonographic Davis's sign. COMMON BILE DUCT: Normal in caliber measuring 0.3 cm in diameter. RIGHT KIDNEY: No hydronephrosis. No renal calculi or focal parenchymal lesions. The kidney measures 10.0 cm in maximum dimension. LEFT KIDNEY: No hydronephrosis. No renal calculi or focal parenchymal lesions. The kidney measures 10.4 cm in maximum dimension. SPLEEN: Unremarkable. The spleen measures 10.4 cm in maximum dimension. FREE FLUID: None seen. US/US abdomen comp w elastography IMPRESSION: 1. Liver demonstrates diffusely increased echogenicity in keeping with fatty infiltration. There are areas of focal fatty sparing. No suspicious focal lesion or intrahepatic biliary dilatation present. 2. Liver elastography: In the absence of other known clinical signs, measurements rule out compensated advanced chronic liver disease. If there are known clinical signs, further testing may be needed for confirmation. 3. Normal gallbladder and bile ducts. 4. The remainder of the examination is normal. REFERENCE: Society of [employer] in Ultrasound Liver Stiffness Thresholds (2019): LIVER STIFFNESS THRESHOLDS: *Liver Stiffness equal or less than 1.3 m/s: High probability of being normal. *Liver Stiffness less than 1.7 m/s: In the absence of other known clinical signs, rules out compensated advanced chronic liver disease. *Liver Stiffness 1.7-2.1 m/s: Suggestive of compensated advanced chronic liver disease but need further test for confirmation. *Liver Stiffness over 2.1 m/s: Rules in compensated advanced chronic liver disease. *Liver Stiffness over 2.4 m/s: Suggestive of clinically significant portal hypertension. QUALITY OF DATA SET: *IQR/Median value equal or less than 0.15 implies a quality data set. *IQR/Median value over 0.15 implies a poor quality data set. SIGNIFICANT CHANGE FROM PRIOR EXAM: Significant change if liver stiffness measurement is 10% or greater from prior exam. OTHER CONSIDERATIONS: The stage of liver fibrosis may be overestimated in the setting of acute hepatitis, liver inflammation, elevated liver function tests, hepatic vascular congestion, obstructive cholestasis, non-fasting state, and infiltrative diseases such as amyloidosis and lymphoma. In some patients with NAFLD, the liver stiffness thresholds for compensated advanced chronic liver disease may be lower. In causes other than viral hepatitis and NAFLD, liver stiffness thresholds are not well established. Electronically signed by: Morgan Briceno MD 06/09/2025 10:38 AM EST
== END 2025-06-09 09:36 | disposition home or self-care (01) ==
LOC: HO.US 09:35
PROVIDERS: PCP Internal Medicine; Visit Provider Internal Medicine
DX: R74.01 Elevation of levels of liver transaminase levels (principal)
CPT/HCPCS: 76700; 76981

== ENCOUNTER → 2025-06-09 09:36 | Outpatient (BNV) | payer MEDICAID, SELFPAY | PROVIDERS: PCP Internal Medicine; Visit Provider Radiology Diagnostic Radiology | DX: K76.89 Other specified diseases of liver (principal) | CPT/HCPCS: 76700 ==